=== PATIENT | male | born 1965 | race Hispanic/Latino ===

== ENCOUNTER 2018-07-14 14:48 | Inpatient (IN) | payer MEDICAID, MEDICARE ==
[2018-07-14 14:48] VITALS: BMI 25.0
--- NOTE | 2018-07-14 15:49 | ED PDOC ---
HPI: Neurologic - General Time Seen by Provider: 07/14/18 15:13 Chief Complaint (Nursing): Weakness/Neurological Deficit Source: patient - History of Present Illness Timing/Duration: 24 hours Severity: moderate Associated Symptoms: trouble walking Allergies/Adverse Reactions: Allergies No Known Allergies Allergy (Verified 08/06/14 11:25) Home Medications: Ambulatory Orders Chlordiazepoxide Hydrochlori [Librium] 25 mg PO DAILY PRN #10 cap 12/11/14 Ondansetron [Zofran] 4 mg PO Q8H PRN #6 tab 12/11/14 Cephalexin [cephalexin] 1 tab PO BID #14 cap 11/14/16 Sulfamethoxazole/Trimethoprim [Bactrim DS 800 mg-160 mg] 1 tab PO BID #14 tab Additional Complaint(s): Tremors , difficulty walking and standing as well as akatesias, worse over past 24 hrs. Has h/o Parkinson's which has gotten progressiveley worse. Feels like falling. Past Medical History Vital Signs: Last Vital Signs Temp 98 F 07/14/18 14:50 Pulse 110 H 07/14/18 14:50 Resp 17 07/14/18 14:50 BP 137/85 07/14/18 14:50 Pulse Ox 97 07/14/18 14:50 - Medical History PMH: Anxiety, HTN, Parkinson's Disease - Family History Family History: States: CAD - Immunization History Hx Tetanus Toxoid Vaccination: No Hx Influenza Vaccination: No Hx Pneumococcal Vaccination: No - Home Medications Home Medications: Ambulatory Orders Medication Instructions Recorded Chlordiazepoxide Hydrochlori 25 mg PO DAILY PRN #10 cap 12/11/14 [Librium] Ondansetron [Zofran] 4 mg PO Q8H PRN #6 tab 12/11/14 Cephalexin [cephalexin] 1 tab PO BID #14 cap 11/14/16 Sulfamethoxazole/Trimethoprim 1 tab PO BID #14 tab 11/14/16 [Bactrim DS 800 mg-160 mg] - Allergies Allergies/Adverse Reactions: Allergies Allergy/AdvReac Type Severity Reaction Status Date / Time No Known Allergies Allergy Verified 08/06/14 11:25 Review of Systems ROS Statement: Except As Marked, All Systems Reviewed And Found Negative Neurological: Positive for: Incoordination, Other (Tremors) Physical Exam - Reviewed Nursing Documentation Reviewed: Yes Vital Signs Reviewed: Yes - Physical Exam Appears: Positive for: Non-toxic, No Acute Distress Head Exam: Positive for: ATRAUMATIC, NORMAL INSPECTION, NORMOCEPHALIC Skin: Positive for: Normal Color, Warm, DRY Eye Exam: Positive for: EOMI, Normal appearance, PERRL ENT: Positive for: Normal ENT Inspection Neck: Positive for: Normal, Painless ROM Cardiovascular/Chest: Positive for: Regular Rate, Rhythm Respiratory: Positive for: CNT, Normal Breath Sounds Gastrointestinal/Abdominal: Positive for: Normal Exam, Soft Back: Positive for: Normal Inspection Extremity: Positive for: Normal ROM Neurologic/Psych: Positive for: Alert, Oriented, Other (Akathesias upper and lower ext. No focal weakness) - Laboratory Results Result Diagrams: 07/14/18 16:11 07/14/18 16:11 - ECG O2 Sat by Pulse Oximetry: 97 Disposition - Clinical Impression Clinical Impression: Near syncope, Parkinson disease - Patient ED Disposition Is Patient to be Admitted: Yes - Disposition Disposition Time: 16:43 Condition: FAIR Forms: [employer] (Polish) - Pt Status Changed To: Hospital Disposition Of: Observation - POA Present On Arrival: None
[2018-07-14 16:20] LABS: BASO # 0.1 K/uL (0.0-0.2); BASO % 0.7 % (0.0-2.0); EOS # 0.2 K/uL (0.0-0.7); HEMOGLOBIN 15.6 g/dL (12.0-18.0); LYMPH # 1.3 K/uL (1.0-4.3); LYMPH % 8.7 % (20.0-40.0); MEAN CORPUSCULAR HEMOGLOBIN 28.8 pg (27.0-31.0); MEAN CORPUSCULAR HGB CONC 33.5 g/dL (33.0-37.0); MEAN PLATELET VOLUME 7.2 fl (7.2-11.7); MONO # 0.5 K/uL (0.0-0.8); MONO % 3.4 % (0.0-10.0); NEUT # 13.1 K/uL (1.8-7.0); NEUT % 86.2 % (50.0-75.0); NRBC % 0.2 % (0.0-0.0); PLATELET COUNT 579 K/uL (130-400); RBC 5.41 Mil/uL (4.40-5.90); RED CELL DISTRIBUTION WIDTH 17.3 % (11.5-14.5); WHITE BLOOD COUNT 15.2 K/uL (4.8-10.8)
[2018-07-14 16:33] LABS: ALB/GLOB RATIO 1.8 (1.0-2.1); ALBUMIN 4.6 g/dL (3.5-5.0); ALT/SGPT 13 U/L (21-72); AST/SGOT 32 U/L (17-59); BLOOD UREA NITROGEN 14 mg/dl (9-20); CALCIUM 9.4 mg/dL (8.4-10.2); GFR NON-AFRICAN AMERICAN > 60
--- NOTE | 2018-07-14 16:50 | CT ---
Date of service: 07/14/2018 PROCEDURE: CT HEAD WITHOUT CONTRAST. HISTORY: r/o bleed COMPARISON: Noncontrast head CT 02/04/2014. TECHNIQUE: Axial computed tomography images were obtained through the head/brain without intravenous contrast. Radiation dose: Total exam DLP = 973.11 mGy-cm. This CT exam was performed using one or more of the following dose reduction techniques: Automated exposure control, adjustment of the mA and/or kV according to patient size, and/or use of iterative reconstruction technique. FINDINGS: HEMORRHAGE: No intracranial hemorrhage. A small 5 mm hyperdensity is stable at the left parietal subcortical white matter, unchanged compared to 02/04/2014 CT. BRAIN: No interval mass effects identified with corticomedullary differentiation remaining normal throughout. 1.1 cm cyst is stable at the left choroid fissure probably reflecting an arachnoid cyst. No cortical edema or additional extra-axial finding appreciated throughout. VENTRICLES: Unremarkable. No hydrocephalus. CALVARIUM: Unremarkable. PARANASAL SINUSES: Unremarkable as visualized. No significant inflammatory changes. MASTOID AIR CELLS: Unremarkable as visualized. No inflammatory changes. OTHER FINDINGS: None. IMPRESSION: No acute intracranial findings. Stable probable cavernous hemangioma is seen at the left parietal lobe with a stable 1.1 cm left choroid fissure cyst reiterated. Follow-up CT or MRI are available if clinically warranted.
[2018-07-14] MEDS ORDERED: Tdap Vaccine 0.5 ml Vial (10-64 yrs) IM ONE ×2 (17:01→17:35)
[2018-07-14 18:54] LABS: BASOPHIL 1 % (0-2); LYMPHOCYTE 9 % (20-50); METAMYELOCYTE 1 % (0-0); MONOCYTE 1 % (0-10); NEUTROPHIL 88 % (42-75); PLATELET ESTIMATE INCREASED (NORMAL); TOTAL CELLS COUNTED 100
[2018-07-14 18:56] LABS: ANISOCYTOSIS SLIGHT; OVALOCYTES SLIGHT
[2018-07-14 18:57] LABS: SCHISTOCYTES SLIGHT
[2018-07-15] MEDS: Carbidopa/Levodopa 50/200 CR PO PRN ×2 (00:12→05:00)
--- NOTE | 2018-07-15 07:52 | RAD ---
Date of service: 07/14/2018 HISTORY: near syncope COMPARISON: Portable chest 02/04/2014. TECHNIQUE: Chest PA and lateral FINDINGS: LUNGS: No active pulmonary disease. PLEURA: No significant pleural effusion identified. No pneumothorax apparent. CARDIOVASCULAR: Normal. OSSEOUS STRUCTURES: No significant abnormalities. VISUALIZED UPPER ABDOMEN: Normal. OTHER FINDINGS: None. IMPRESSION: No interval acute cardiopulmonary disease appreciated.
--- NOTE | 2018-07-15 08:22 | CP.PCM.HP ---
<Haider Mckee - Last Filed: 07/15/18 13:04> History of Present Illness - History of Present Illness History of Present Illness: 53 y/o m with a PMHx of alcoholism and Parkinson's disease presented to ED yesterday complaining of upper extremities tremors and upper extremities movements that were persistent and constant for more than 24 hours. Pt was not able to walk normally due to loss of balance. Today, pt was evaluated and examined with Dr Shoemaker by bedside. Symptoms have improved with medications given. Pt reports that his Parkinson's has remarkably aggravated since 2 months ago. Pt reports carbidopa/levodopa are not able to completely controlled symptoms. NKDA PMD: ?Dr Cortez in [place]. Neurologist: Dr Saucedo at [facility]. Social Hx: Pt reports still smoking a few cigarettes a day, and marihuana which help him with his anxiety. Pt drinks socially only 1-2 beers weekly. Present on Admission - Present on Admission Any Indicators Present on Admission: No Review of Systems - Constitutional Constitutional: absent: Anorexia, Chills, Fever - EENT Eyes: absent: Change in Vision, Photophobia Nose/Mouth/Throat: absent: Nasal Discharge - Cardiovascular Cardiovascular: absent: Chest Pain - Respiratory Respiratory: absent: Hemoptysis - Gastrointestinal Gastrointestinal: absent: Abdominal Pain, Hematemesis, Nausea, Vomiting - Neurological Neurological: Abnormal Gait, Abnormal Movements, Tremor. absent: Sensory Deficit, Syncope Past Patient History - Past Medical History & Family History Past Medical History?: Yes - Past Social History Smoking Status: Light Smoker < 10 Cigarettes Daily - CARDIAC Hx Cardiac Disorders: Yes Hx Hypertension: Yes - PULMONARY Hx Respiratory Disorders: No - NEUROLOGICAL Hx Neurological Disorder: Yes Hx Parkinson's Disease: Yes - HEENT Hx HEENT Problems: No - RENAL Hx Chronic Kidney Disease: No - ENDOCRINE/METABOLIC Hx Endocrine Disorders: No - HEMATOLOGICAL/ONCOLOGICAL Hx Blood Disorders: No Hx AIDS: No Hx Human Immunodeficiency Virus (HIV): No - INTEGUMENTARY Hx Dermatological Problems: No - MUSCULOSKELETAL/RHEUMATOLOGICAL Hx Musculoskeletal Disorders: No Hx Falls: No - GASTROINTESTINAL Hx Gastrointestinal Disorders: No - GENITOURINARY/GYNECOLOGICAL Hx Genitourinary Disorders: No - PSYCHIATRIC Hx Psychophysiologic Disorder: Yes Hx Anxiety: Yes Hx Substance Use: No - SURGICAL HISTORY Hx Surgeries: No - ANESTHESIA Hx Anesthesia: No Meds Allergies/Adverse Reactions: Allergies Allergy/AdvReac Type Severity Reaction Status Date / Time No Known Allergies Allergy Verified 08/06/14 11:25 Physical Exam - Constitutional Appears: No Acute Distress - Head Exam Head Exam: ATRAUMATIC, NORMAL INSPECTION - Eye Exam Eye Exam: EOMI, Normal appearance Pupil Exam: PERRL - ENT Exam ENT Exam: Mucous Membranes Dry - Neck Exam Neck exam: Positive for: Full Rom. Negative for: Meningismus - Respiratory Exam Respiratory Exam: Clear to Auscultation Bilateral, NORMAL BREATHING PATTERN - Cardiovascular Exam Cardiovascular Exam: REGULAR RHYTHM, +S1, +S2 - GI/Abdominal Exam GI & Abdominal Exam: Normal Bowel Sounds, Soft. absent: Guarding, Tenderness - Extremities Exam Extremities exam: Positive for: full ROM, normal inspection. Negative for: calf tenderness - Neurological Exam Neurological exam: Alert, Oriented x3 Results - Vital Signs Recent Vital Signs: Last Vital Signs Temp 97.8 F 07/15/18 08:07 Pulse 67 07/15/18 08:07 Resp 20 07/15/18 08:07 BP 95/59 L 07/15/18 08:07 Pulse Ox 99 07/15/18 08:07 - Labs Result Diagrams: 07/15/18 11:12 07/14/18 16:11 Labs: Laboratory Results - last 24 hr 07/14/18 07/14/18 16:11 16:11 WBC 15.2 H RBC 5.41 Hgb 15.6 Hct 46.5 MCV 86.0 MCH 28.8 MCHC 33.5 RDW 17.3 H Plt Count 579 H D MPV 7.2 Neut % (Auto) 86.2 H Lymph % (Auto) 8.7 L [place] % (Auto) 3.4 Eos % (Auto) 1.0 Baso % (Auto) 0.7 Neut # (Auto) 13.1 H Lymph # (Auto) 1.3 [place] # (Auto) 0.5 Eos # (Auto) 0.2 Baso # (Auto) 0.1 Neutrophils % (Manual) 88 H Lymphocytes % (Manual) 9 L Monocytes % (Manual) 1 Basophils % (Manual) 1 Metamyelocytes % 1 H Platelet Estimate Increased H Anisocytosis (manual) Slight Ovalocytes Slight Schistocytes Slight Sodium 138 Potassium 4.5 Chloride 105 Carbon Dioxide 26 Anion Gap 12 BUN 14 Creatinine 0.7 L Est GFR ( Amer) > 60 Est GFR (Non-Af Amer) > 60 Random Glucose 88 Calcium 9.4 Total Bilirubin 0.7 AST 32 ALT 13 L D Alkaline Phosphatase 48 Total Protein 7.2 Albumin 4.6 Globulin 2.6 Albumin/Globulin Ratio 1.8 Assessment & Plan - Assessment and Plan (Free Text) Assessment: 53 y/o m with a PMHx of alcoholism and Parkinson's disease admitted for evalauation and management of rapidly aggravating Parkinson's disease. >Head CT: No acute intracranial findings, stable left parietal cavernous hemangioma. --Neurology, Dr Bobby, on consult, awaiting recommendations. --PT/OT consult ordered. --Home medications ordered. --Continue with managemetn as ordered. - Date & Time Date: 07/15/18 Time: 07:36 <Aaron Shoemaker - Last Filed: 07/16/18 16:13> Results - Vital Signs Recent Vital Signs: Last Vital Signs Temp 97.4 F L 07/16/18 15:59 Pulse 106 H 07/16/18 15:59 Resp 17 07/16/18 15:59 BP 149/91 H 07/16/18 15:59 Pulse Ox 98 07/16/18 15:59 - Labs Result Diagrams: 07/15/18 11:12 07/14/18 16:11 Assessment & Plan - Assessment and Plan (Free Text) Assessment: Patient was personally seen and examined by me in rounds with residents. Available labs and diagnostic data reviewed. Case, Patient's condition and management plan discussed with residents in rounds. Agree with resident's progress note. Plan: As ordered.
[2018-07-15] MEDS: Magnesium Oxide 400 mg Tab UD PO SCH (08:33)
[2018-07-15] MEDS: Enoxaparin 40 mg Syringe SC SCH (08:42)
[2018-07-15] MEDS ORDERED: Carbidopa/Levodopa 50/200 CR PO SCH ×2 (09:00→18:00)
--- NOTE | 2018-07-15 09:06 | CARD ---
APPROVED REPORT Date of service: 07/14/2018 EKG Measurement Heart [id number] [id number] <Conclusion> Normal sinus rhythm Normal ECG
[2018-07-15] MEDS: Carbidopa/Levodopa 50/200 CR PO SCH ×6 (09:18→23:59)
[2018-07-15 11:23] LABS: HEMOGLOBIN 15.8 g/dL (12.0-18.0); MEAN CELL VOLUME 87.2 fl (80.0-94.0); MEAN CORPUSCULAR HEMOGLOBIN 29.1 pg (27.0-31.0); MEAN CORPUSCULAR HGB CONC 33.4 g/dL (33.0-37.0); RBC 5.41 Mil/uL (4.40-5.90); RED CELL DISTRIBUTION WIDTH 17.5 % (11.5-14.5); WHITE BLOOD COUNT 14.3 K/uL (4.8-10.8)
--- NOTE | 2018-07-16 07:19 | CP.PCM.PN ---
<Haider Mckee - Last Filed: 07/16/18 07:08> Subjective - Date & Time of Evaluation Date of Evaluation: 07/16/18 Time of Evaluation: 06:30 - Subjective Subjective: 53 y/o M evaluated and examined with Dr Shoemaker by bedside. Pt feeling better, with no arms dyskinesia reported. Pt c/o bilateral foot dystonia, as per patient this usually occurs with prolonged interval doses of Sinemet. Pt reports being able to walk with normal gait when he is with his medications. -Pt explains that Parkinson's was diagnosed in 2014, has tried Entacapone in the past; however, he developed severe side effects such as mood instability and irritation. Pt has tried Selegiline with good tolerance and improvement of symptoms. -Pt afebrile, tolerating Po with No acute events overnight. Pt was able to walk around the floor. Denies chills, chest pain, SOB, abdominal pain, N/V. Objective - Vital Signs/Intake and Output Vital Signs (last 24 hours): Temp Pulse Resp BP Pulse Ox 97.7 F 67 18 122/83 97 07/16/18 04:47 07/16/18 04:47 07/16/18 04:47 07/16/18 04:47 07/16/18 04:47 - Medications Medications: Current Medications Carbidopa/Levodopa (Sinemet Cr) 1 tab PO 2100,0000 [facility] Last Admin: 07/15/18 23:59 Dose: 1 tab Carbidopa/Levodopa (Sinemet Cr) 1 tab PO 0900,1200,1500,1800 [facility] Last Admin: 07/15/18 17:46 Dose: 1 tab Clonazepam (Klonopin) 1 mg PO DAILY [facility] Last Admin: 07/15/18 08:38 Dose: 1 mg Enoxaparin Sodium (Lovenox) 40 mg SC DAILY [facility] PRN Reason: Protocol Last Admin: 07/15/18 08:42 Dose: 40 mg Ibuprofen (Motrin Oral Susp) 200 mg PO Q6 PRN PRN Reason: Pain, moderate (4-7) Last Admin: 07/16/18 05:45 Dose: 200 mg Magnesium Oxide (Mag-Ox) 800 mg PO DAILY [facility] Last Admin: 07/15/18 08:33 Dose: 800 mg - Labs Labs: 07/15/18 11:12 07/14/18 16:11 - Constitutional Appears: No Acute Distress - Head Exam Head Exam: ATRAUMATIC, NORMAL INSPECTION - Eye Exam Eye Exam: EOMI, Normal appearance - ENT Exam ENT Exam: Mucous Membranes Moist - Neck Exam Neck Exam: Full ROM. absent: Meningismus - Respiratory Exam Respiratory Exam: Clear to Ausculation Bilateral, NORMAL BREATHING PATTERN - Cardiovascular Exam Cardiovascular Exam: REGULAR RHYTHM, +S1, +S2 - Extremities Exam Extremities Exam: Full ROM, Normal Inspection. absent: Calf Tenderness - Neurological Exam Neurological Exam: Alert, Awake, Oriented x3 Additional comments: presence of parkinsonian gait. Assessment and Plan (1) Parkinson disease Status: Chronic - Assessment and Plan (Free Text) Assessment: 53 y/o m with a PMHx of alcoholism and Parkinson's disease admitted for evalauation and management of rapidly aggravating Parkinson's disease. >Head CT: No acute intracranial findings, stable left parietal cavernous hemangioma. --Neurology, Dr Bobby, on consult, awaiting recommendations. --Sinemet 6 times a day. --PT/OT consult, recommendations were appreciated, not a candidate for skilled PT. --Home medications ordered. --Continue with management as ordered. <Aaron Shoemaker - Last Filed: 07/16/18 16:15> Objective - Vital Signs/Intake and Output Vital Signs (last 24 hours): Temp Pulse Resp BP Pulse Ox 97.4 F L 106 H 17 149/91 H 98 07/16/18 15:59 07/16/18 15:59 07/16/18 15:59 07/16/18 15:59 07/16/18 15:59 - Medications Medications: Current Medications Carbidopa/Levodopa (Sinemet Cr) 1 tab PO 2100,0000 [facility] Last Admin: 07/15/18 23:59 Dose: 1 tab Carbidopa/Levodopa (Sinemet Cr) 1 tab PO 0900,1200,1500 [facility] Clonazepam (Klonopin) 1 mg PO DAILY [facility] Last Admin: 07/16/18 08:45 Dose: 1 mg Enoxaparin Sodium (Lovenox) 40 mg SC DAILY [facility] PRN Reason: Protocol Last Admin: 07/16/18 08:47 Dose: 40 mg Ibuprofen (Motrin Oral Susp) 200 mg PO Q6 PRN PRN Reason: Pain, moderate (4-7) Last Admin: 07/16/18 05:45 Dose: 200 mg Ketorolac Tromethamine (Toradol) 15 mg IVP ONCE ONE Stop: 07/16/18 15:25 Magnesium Oxide (Mag-Ox) 800 mg PO DAILY [facility] Last Admin: 07/16/18 08:46 Dose: 800 mg - Labs Labs: 07/15/18 11:12 07/14/18 16:11 Assessment and Plan - Assessment and Plan (Free Text) Assessment: Patient was personally seen and examined by me in rounds with residents. Available labs and diagnostic data reviewed. Case, Patient's condition and management plan discussed with residents in rounds. Agree with resident's progress note. Plan: As ordered.
[2018-07-16] MEDS: Magnesium Oxide 400 mg Tab UD PO SCH (08:46)
[2018-07-16] MEDS: Enoxaparin 40 mg Syringe SC SCH (08:47)
[2018-07-16] MEDS: Carbidopa/Levodopa 50/200 CR PO SCH ×5 (08:47→23:43)
--- NOTE | 2018-07-16 15:52 | CP.PCM.CON ---
History of Present Illness - History of Present Illness History of Present Illness: 53 yr old male with long standing history of Parkinsons Disease, followed by in [facility], who was a candidate for DBS, but declined due to living situation, admitted to hospital for worsening of Parkinsons Disease. Mr. Delgadillo is maintained on sinemet 6 times daily, which is taken at prescribed times. He is now taking klonopin 1 mg bid as well for anxiety which makes his Parkinsons disease worse. He is currently quite refractory, with freezing spells and bradykinesia, that is, according to only minimally helped by sinemet dose. 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 ROS: no nausea, no vomiting, no diarrhea, no headache, no gi upset, no weakness. PMH/pSH: as above, Bipolar disease. FH/SH: Homeless, no tobacco, occasional etoh. All: nkda. ON exam: AAOX3. PERRL. CN 2-12 normal. EOMI. motor: severe bradykinesia. normal strength. resting tremor in left hand more than right, high amplitude. sensory: normal ft, pin. Gait: SEverely bradykinetic. mar[place] a [place] pas. Increased tone and severe postural instability. +2 dtr ul and ll bl. Toes downgoing. No clonus. Past Patient History - Past Medical History & Family History Past Medical History?: Yes - Past Social History Smoking Status: Light Smoker < 10 Cigarettes Daily - CARDIAC Hx Cardiac Disorders: Yes Hx Hypertension: Yes - PULMONARY Hx Respiratory Disorders: No - NEUROLOGICAL Hx Neurological Disorder: Yes Hx Parkinson's Disease: Yes - HEENT Hx HEENT Problems: No - RENAL Hx Chronic Kidney Disease: No - ENDOCRINE/METABOLIC Hx Endocrine Disorders: No - HEMATOLOGICAL/ONCOLOGICAL Hx Blood Disorders: No Hx AIDS: No Hx Human Immunodeficiency Virus (HIV): No - INTEGUMENTARY Hx Dermatological Problems: No - MUSCULOSKELETAL/RHEUMATOLOGICAL Hx Musculoskeletal Disorders: No Hx Falls: No - GASTROINTESTINAL Hx Gastrointestinal Disorders: No - GENITOURINARY/GYNECOLOGICAL Hx Genitourinary Disorders: No - PSYCHIATRIC Hx Psychophysiologic Disorder: Yes Hx Anxiety: Yes Hx Substance Use: No - SURGICAL HISTORY Hx Surgeries: No - ANESTHESIA Hx Anesthesia: No Meds Allergies/Adverse Reactions: Allergies Allergy/AdvReac Type Severity Reaction Status Date / Time No Known Allergies Allergy Verified 08/06/14 11:25 - Medications Medications: Current Medications Carbidopa/Levodopa (Sinemet Cr) 1 tab PO 2100,0000 [facility] Last Admin: 07/15/18 23:59 Dose: 1 tab Carbidopa/Levodopa (Sinemet Cr) 1 tab PO 0900,1200,1500,1800 [facility] Last Admin: 07/16/18 14:50 Dose: 1 tab Carbidopa/Levodopa (Sinemet Cr) 2 tab PO DAILY [facility] Clonazepam (Klonopin) 1 mg PO DAILY [facility] Last Admin: 07/16/18 08:45 Dose: 1 mg Enoxaparin Sodium (Lovenox) 40 mg SC DAILY [facility] PRN Reason: Protocol Last Admin: 07/16/18 08:47 Dose: 40 mg Ibuprofen (Motrin Oral Susp) 200 mg PO Q6 PRN PRN Reason: Pain, moderate (4-7) Last Admin: 07/16/18 05:45 Dose: 200 mg Ketorolac Tromethamine (Toradol) 15 mg IVP ONCE ONE Stop: 07/16/18 15:25 Magnesium Oxide (Mag-Ox) 800 mg PO DAILY [facility] Last Admin: 07/16/18 08:46 Dose: 800 mg Results - Vital Signs Recent Vital Signs: Last Vital Signs Temp 97.6 F 07/16/18 12:31 Pulse 114 H 07/16/18 12:31 Resp 20 07/16/18 12:31 BP 151/92 H 07/16/18 12:31 Pulse Ox 95 07/16/18 12:31 - Labs Result Diagrams: 07/15/18 11:12 07/14/18 16:11 Assessment & Plan - Assessment and Plan (Free Text) Assessment: 53 yr old male who has refractory Parkinsons disease, candidate for DBS, currently not being done due to patients social situation. He is on max doses of sinemet according to his movement disorder specialist, and is now only a candidate for this surgery. Plan: 1. Increase klonopin to 1mg po bid 2. Patient has UTI and will need antibiotics. 3. Physical therapy 4. Refer for second opinion to Dr. Cathi Bahena at [place] 5. Continue current sinemet with no adjustment. Thank you Dr. morton
[2018-07-16 16:53] LABS: URINE BILIRUBIN NEGATIVE (NEGATIVE); URINE BLOOD NEGATIVE (NEGATIVE); URINE CLARITY CLEAR (Clear); URINE COLOR YELLOW (YELLOW); URINE GLUCOSE (UA) NEG (Normal); URINE LEUKOCYTE ESTERASE NEG Leu/uL (Negative); URINE PROTEIN NEGATIVE (NEGATIVE); URINE UROBILINOGEN 0.2-1.0 mg/dL (0.2-1.0)
[2018-07-16] MEDS ORDERED: Carbidopa/Levodopa 50/200 CR PO SCH (18:00)
[2018-07-17] MEDS ORDERED: Carbidopa/Levodopa 25/100 CR PO SCH (03:00)
[2018-07-17 05:58] LABS: HEMOGLOBIN 15.9 g/dL (12.0-18.0); MEAN CELL VOLUME 86.8 fl (80.0-94.0); MEAN CORPUSCULAR HEMOGLOBIN 28.9 pg (27.0-31.0); MEAN CORPUSCULAR HGB CONC 33.3 g/dL (33.0-37.0); RBC 5.49 Mil/uL (4.40-5.90); RED CELL DISTRIBUTION WIDTH 17.3 % (11.5-14.5); WHITE BLOOD COUNT 14.6 K/uL (4.8-10.8)
[2018-07-17 06:04] LABS: BLOOD UREA NITROGEN 15 mg/dl (9-20); CALCIUM 9.6 mg/dL (8.4-10.2); GFR NON-AFRICAN AMERICAN > 60
[2018-07-17 08:05] VITALS: RESP 20; O2SAT 96
[2018-07-17] MEDS: Carbidopa/Levodopa 50/200 CR PO SCH ×2 (08:49→11:50)
[2018-07-17] MEDS: Enoxaparin 40 mg Syringe SC SCH (11:45)
[2018-07-17] MEDS: Magnesium Oxide 400 mg Tab UD PO SCH (11:46)
[2018-07-17 13:03] VITALS: BP 149/91; PULSE 102; TEMP 97.8
[2018-07-17] MEDS ORDERED: Carbidopa/Levodopa 50/200 CR PO SCH (18:00)
--- NOTE | 2018-07-17 18:42 | CP.PCM.DIS ---
Provider - Provider Date of Admission: 07/16/18 15:34 Attending physician: Aaron Shoemaker MD Consults: Neurology: Dr Bobby Time Spent in preparation of Discharge (in minutes): 25 Diagnosis - Discharge Diagnosis (1) Parkinson disease Status: Chronic Comment: -As per neurologist, continue Sinemet as directed and icrease Klonopin 1mg to BID. -Second opinion recommended, information given to patient. Hospital Course - Lab Results Lab Results: Most Recent Lab Values WBC 14.6 K/uL (4.8-10.8) H 07/17/18 04:30 RBC 5.49 Mil/uL (4.40-5.90) 07/17/18 04:30 Hgb 15.9 g/dL (12.0-18.0) 07/17/18 04:30 Hct 47.6 % (35.0-51.0) 07/17/18 04:30 MCV 86.8 fl (80.0-94.0) 07/17/18 04:30 MCH 28.9 pg (27.0-31.0) 07/17/18 04:30 MCHC 33.3 g/dL (33.0-37.0) 07/17/18 04:30 RDW 17.3 % (11.5-14.5) H 07/17/18 04:30 Plt Count 595 K/uL (130-400) H 07/17/18 04:30 MPV 7.2 fl (7.2-11.7) 07/14/18 16:11 Neut % (Auto) 86.2 % (50.0-75.0) H 07/14/18 16:11 Lymph % (Auto) 8.7 % (20.0-40.0) L 07/14/18 16:11 [place] % (Auto) 3.4 % (0.0-10.0) 07/14/18 16:11 Eos % (Auto) 1.0 % (0.0-4.0) 07/14/18 16:11 Baso % (Auto) 0.7 % (0.0-2.0) 07/14/18 16:11 Neut # (Auto) 13.1 K/uL (1.8-7.0) H 07/14/18 16:11 Lymph # (Auto) 1.3 K/uL (1.0-4.3) 07/14/18 16:11 [place] # (Auto) 0.5 K/uL (0.0-0.8) 07/14/18 16:11 Eos # (Auto) 0.2 K/uL (0.0-0.7) 07/14/18 16:11 Baso # (Auto) 0.1 K/uL (0.0-0.2) 07/14/18 16:11 Neutrophils % (Manual) 88 % (42-75) H 07/14/18 16:11 Lymphocytes % (Manual) 9 % (20-50) L 07/14/18 16:11 Monocytes % (Manual) 1 % (0-10) 07/14/18 16:11 Basophils % (Manual) 1 % (0-2) 07/14/18 16:11 Metamyelocytes % 1 % (0-0) H 07/14/18 16:11 Platelet Estimate Increased (NORMAL) H 07/14/18 16:11 Anisocytosis (manual) Slight 07/14/18 16:11 Ovalocytes Slight 07/14/18 16:11 Schistocytes Slight 07/14/18 16:11 Sodium 139 mmol/l (132-148) 07/17/18 04:30 Potassium 4.0 MMOL/L (3.6-5.0) 07/17/18 04:30 Chloride 101 mmol/L (98-107) 07/17/18 04:30 Carbon Dioxide 29 mmol/L (22-30) 07/17/18 04:30 Anion Gap 13 (10-20) 07/17/18 04:30 BUN 15 mg/dl (9-20) 07/17/18 04:30 Creatinine 0.7 mg/dl (0.8-1.5) L 07/17/18 04:30 Est GFR ( Amer) > 60 07/17/18 04:30 Est GFR (Non-Af Amer) > 60 07/17/18 04:30 Random Glucose 94 mg/dL (75-110) 07/17/18 04:30 Calcium 9.6 mg/dL (8.4-10.2) 07/17/18 04:30 Total Bilirubin 0.7 mg/dl (0.2-1.3) 08/20/18 16:11 AST 32 U/L (17-59) 07/14/18 16:11 ALT 13 U/L (21-72) L D 07/14/18 16:11 Alkaline Phosphatase 48 U/L (38-126) 07/14/18 16:11 Total Protein 7.2 G/DL (6.3-8.2) 07/14/18 16:11 Albumin 4.6 g/dL (3.5-5.0) 07/14/18 16:11 Globulin 2.6 gm/dL (2.2-3.9) 07/14/18 16:11 Albumin/Globulin Ratio 1.8 (1.0-2.1) 07/14/18 16:11 Urine Color Yellow (YELLOW) 07/14/18 16:39 Urine Clarity Clear (Clear) 07/14/18 16:39 Urine pH 6.0 (5.0-8.0) 07/14/18 16:39 Ur Specific [place] 1.010 (1.003-1.030) 07/14/18 16:39 Urine Protein Negative mg/dL (NEGATIVE) 07/14/18 16:39 Urine Glucose (UA) Neg mg/dL (Normal) 07/14/18 16:39 Urine Ketones Negative mg/dL (NEGATIVE) 07/14/18 16:39 Urine Blood Negative (NEGATIVE) 07/14/18 16:39 Urine Nitrate Negative (NEGATIVE) 07/14/18 16:39 Urine Bilirubin Negative (NEGATIVE) 07/14/18 16:39 Urine Urobilinogen 0.2-1.0 mg/dL (0.2-1.0) 07/14/18 16:39 Ur Leukocyte Esterase Neg Bear/uL (Negative) 07/14/18 16:39 - Hospital Course Hospital Course: 53 y/o M with a PMHx of Parkinson's disease was admitted due to upper extremities dyskinesias and aggravating Parkinson's symptoms. Neurologist, Dr Bobby, evaluated pt and recommended to continue management as ordered by his neurologist and gave information for 2nd opinion. Urinalysis is negative for UTI. No need for antibiotics. Pt stable, tolerating PO, able to ambulate, discharged home. - Date & Time of H&P Date of H&P: 07/15/18 Time of H&P: 08: Discharge Exam - Head Exam Head Exam: ATRAUMATIC, NORMAL INSPECTION Discharge Plan - Discharge Medications Prescriptions: Carbidopa/Levodopa 50/200 CR [Sinemet CR] 1 tab PO Q3 #150 tab - Follow Up Plan Condition: FAIR Disposition: HOME/ ROUTINE Instructions: Parkinson Disease (DC), Near Fainting (DC) Additional Instructions: follow up with pmd in 1 week follow up [address] Dr.Fiona Bahena in [place] for neurology evaluation fpr a brain stimulation 2nd opinion Referrals: Aaron Shoemaker MD [Staff Provider] - Aashish Cortez MD [Family Provider] - Neisha Bobby MD [Medical Doctor] -
--- NOTE | 2018-07-18 06:57 | PQF ---
PROVIDER RESPONSE TEXT: NO UTI REVIEWER QUERY TEXT: Conflicting Documentation Clarification A single mention of UTI by the neurologist is documented for the same clinical presentation. UA negative. Please document if the condition ( UTI ) is: -- Confirmed and current -- Confirmed, treated and resolved -- Ruled out -- Other, please specify The patient's Clinical Indicators include: Neurology note: Patient has UTI and will need antibiotics. UA negative. Query created by: Mei Iyer on 07/17/2018 7:58 AM Electronically signed by: Aaron Shoemaker 07/18/2018 6:54 AM
== END 2018-07-17 14:30 | disposition home or self-care (01) | DRG 57 ==
LOC: H.ER 14:48 → H.ERHOLD 16:42 → H.TEL 23:04 → OBSVTOIN 07-16 15:34
PROVIDERS: ADMIT Internal Medicine; ATTEND Internal Medicine
PROC: 3E0234Z Introduction of Serum, Toxoid and Vaccine into Muscle, Percutaneous Approach (ICD-10-PCS; principal; 2018-07-14)
DX: G20 Parkinson's disease (principal); Z23 Encounter for immunization; F41.9 Anxiety disorder, unspecified; I10 Essential (primary) hypertension; F17.210 Nicotine dependence, cigarettes, uncomplicated; F10.21 Alcohol dependence, in remission